=== PATIENT | male | born 1965 | race Caucasian/White ===

== ENCOUNTER 2018-07-09 05:55 | Inpatient (IN) | payer OTHER ==
[~2018-07-09] VITALS: Ht 190.5 cm; Wt 164.6 kg
[2018-07-09] MEDS ORDERED: FURO40 PO (06:18)
[2018-07-09] MEDS ORDERED: Jantoven5 MG PO (06:19)
[2018-07-09] MEDS ORDERED: LOSA50 PO (06:19)
[2018-07-09] MEDS ORDERED: HYDCHL25 PO (06:19)
[2018-07-09] MEDS ORDERED: POTCHL20ER PO (06:19)
[2018-07-09] MEDS ORDERED: PANT40 PO (06:19)
[2018-07-09] MEDS ORDERED: Fergon240 M1 PO (06:20)
[2018-07-09] MEDS ORDERED: Lopressor 25 mg25 MG PO (06:20)
[2018-07-09 06:31] LABS: BASOPHILS ABSOLUTE AUTO 0.03 K/mm3 (0.00-0.23); BASOPHILS PERCENT AUTO 0 % (0-2); EOSINOPHILS ABSOLUTE AUTO 0.01 K/mm3 (0.00-0.68); EOSINOPHILS PERCENT AUTO 0 % (0-6); Hemoglobin 14.4 g/dL (13.5-17.5); IMMATURE GRAN ABSOLUTE AUTO 0.05 K/mm3 (0.00-0.10); IMMATURE GRAN PERCENT AUTO 0 % (0-1); LYMPHOCYTES ABSOLUTE AUTO 0.27 K/mm3 (0.84-5.20); LYMPHOCYTES PERCENT AUTO 2 % (21-46); MONOCYTES ABSOLUTE AUTO 0.49 K/mm3 (0.16-1.47); MONOCYTES PERCENT AUTO 4 % (4-13); Mean Corpuscular HGB 28.9 pg (26.0-34.0); Mean Corpuscular HGB Conc 32.7 g/dL (31.5-36.5); Mean Corpuscular Volume 88 fL (80-100); Mean Platelet Volume 11.2 fL (9.1-12.4); NEUTROPHILS ABSOLUTE AUTO 10.32 K/mm3 (1.96-9.15); NEUTROPHILS PERCENT AUTO 92 % (41-73); Platelet Count 152 K/mm3 (150-400); RDW Coefficient Variation 14.8 % (11.7-14.2); RDW Standard Deviation 47.8 fL (35.1-46.3); Red Blood Cell Count 4.99 M/mm3 (4.30-5.90); White Blood Cell Count 11.17 K/mm3 (4.00-11.30)
[2018-07-09 06:46] LABS: Alanine Aminotransfer (ALT/SGP 46 U/L (12-78); Albumin, Blood 3.4 g/dL (3.4-5.0); Albumin/Globulin Ratio 1.1 (0.8-1.8); Alk Phos 70 U/L (50-136); Anion Gap 9 mmol/L (6-16); Aspartate Aminotrans (AST/SGOT 35 U/L (12-37); Bilirubin, Total 1.4 mg/dL (0.1-1.0); Blood Urea Nitrogen 15 mg/dL (8-24); Bun/Creatinine Ratio 12.7 (12.0-20.0); CO2, Blood 23 mmol/L (21-32); Calcium, Blood 8.5 mg/dL (8.5-10.1); Chloride, Blood 110 mmol/L (98-108); Creatinine, Blood 1.18 mg/dL (0.60-1.20); Globulin, Blood 3.2 g/dL (2.2-4.0); Glomerular Filtration Rate >60 (60-); Glucose, Blood 152 mg/dL (70-99); Potassium, Blood 3.4 mmol/L (3.5-5.5); Sodium, Blood 142 mmol/L (136-145); Total Protein, Blood 6.6 g/dL (6.4-8.2); Troponin I 0.016 ng/mL (0.000-0.040)
[2018-07-09 07:02] LABS: D-Dimer, Quantitative 1.19 mg/L FEU (0.00-0.52); International Normalized Ratio 2.91
--- NOTE | 2018-07-09 12:56 | NUR ---
ASSUMED CARE: PT NEW ADMIT PCU STATUS FOR CHEST PAIN. STATES HIS CP IS SIGNIFICANTLY BETTER BUT A BURNING PAIN THAT FEELS LIKE A BAND AROUND THE FRONT OF HIS CHEST. BP LOW SYSTOLIC IN 80S. PT ARRIVES TO UNIT WITH NS AT 250 AND KCL RUNNING. CALL TO DR PERAZA TO DISCUSS RATE AND DR RENDON LEAVE AT 250 FOR THIS LITER AND LET HIM KNOW IF PRESSURE DOESN'T IMPROVE. 2L O2 VIA NC FOR SOB, SATTING LOW 90S. HR LOW 100S. RESTING QUIETLY IN BED, ALERT AND ORIENTED. DENIES FURTHER NEEDS OR CONCERNS AT THIS TIME.
[2018-07-09] MEDS ORDERED: EMERGEN-C 1,01000 MG PO (13:01)
[2018-07-09] MEDS ORDERED: ASPI325 PO (13:02)
[2018-07-09] MEDS ORDERED: ACET325 PO (13:02)
[2018-07-09] MEDS ORDERED: FISH OIL 1,001000 MG PO (13:03)
[2018-07-09] MEDS ORDERED: Glucosamine Ch1 EAC4 PO (13:03)
--- NOTE | 2018-07-09 13:25 | NUR ---
DR PERAZA AWARE OF PT'S CHANGE IN TROPONIN. NO NEW ORDERS AT THIS TIME.
--- NOTE | 2018-07-09 13:56 | NUR ---
DR SUERO HERE TO SEE PT. FEELS VOMITING WAS PROBABLY VIRAL AND INCREASED TROPONIN LIKELY FROM VOMITING. ENTERING ORDERS AT THIS TIME AND SPEAKING WITH PT'S MOTHER BY PHONE
--- NOTE | 2018-07-09 18:33 | NUR ---
SHIFT SUMMARY: PT RESTING IN BED, ZOFRAN AND GI COCKTAIL GIVEN BUT PT FEELS DIDN'T HELP WITH NAUSEA OR CHEST PAIN. SMALL VOLUMES OF EMESIS, MOSTLY MUCOUSY. VSS AT THIS TIME. MOTHER AT BED SIDE OFF AND ON THIS SHIFT.
--- NOTE | 2018-07-09 18:57 | NUR ---
NOTED THAT PT'S O2 NEEDS HAVE INCREASED FROM 3 TO 5L NC WITH SATS IN HIGH 80S. LUNG SOUNDS APPEAR MORE DIMINISHED. CALL TO DR CASTREJON WITH PT'S CURRENT ADMISSION AND HISTORY EXPLAINED. ORDER TO TURN OFF FLUIDS AT THIS TIME. AWARE PT IS STILL HAVING NAUSEA AND DRY HEAVES AND DIZZINESS AND NOT TOLERATING VERY MUCH PO
--- NOTE | 2018-07-09 19:30 | NUR ---
ASUME CARE: REPORT RECIEVED FROM [facility] OFF GOING RN. MONITOR INTACT SHOWING SINUS RHYTHM/SINUS TACH. HEART RATE 90'S-110'S. LUNG SOUNDS DISTANT/DECREASED THROUGH OUT. SPO2 85-90 ON 5L NASAL CANNULA RT NOTIFIED. INCREASE O2 TO 6L/MIN. ABDOMEN SOFT WITH BOWEL SOUNDS FOUR QUADS. REPOSITIONS SELF IN BED. CONTINUE TO MONITOR AND REPORT CHANGE IN PATIENT CONDITION.
--- NOTE | 2018-07-09 20:25 | NUR ---
MEDICATED WITH TYLENOL 650MG PO TOLERATES WELL LUNG SOUNDS REMAIN DECREASED SPO2 85-88% RT NOTIFIED PLACED ON CPAP AUTO 5-20 CONTINUE TO MONITOR AND ADJUST SETTINGS BY RT
--- NOTE | 2018-07-09 21:30 | NUR ---
DR CASTREJON IN TO SEE PATIENT ORDERS NOTED. CONTINUE TO MONITOR AND REPORT CHANGE IN PATIENT CONDITION. CPAP IN PLACE
[2018-07-10 03:51] LABS: BASOPHILS ABSOLUTE AUTO 0.01 K/mm3 (0.00-0.23); BASOPHILS PERCENT AUTO 0 % (0-2); Hematocrit 41.8 % (37.0-53.0); Hemoglobin 13.2 g/dL (13.5-17.5); LYMPHOCYTES ABSOLUTE AUTO 0.08 K/mm3 (0.84-5.20); LYMPHOCYTES PERCENT AUTO 1 % (21-46); MONOCYTES ABSOLUTE AUTO 0.25 K/mm3 (0.16-1.47); MONOCYTES PERCENT AUTO 3 % (4-13); Mean Corpuscular HGB 28.6 pg (26.0-34.0); Mean Corpuscular HGB Conc 31.6 g/dL (31.5-36.5); Mean Platelet Volume 12.2 fL (9.1-12.4); Platelet Count 121 K/mm3 (150-400); RDW Coefficient Variation 15.2 % (11.7-14.2); RDW Standard Deviation 50.5 fL (35.1-46.3); Red Blood Cell Count 4.61 M/mm3 (4.30-5.90); White Blood Cell Count 8.18 K/mm3 (4.00-11.30)
[2018-07-10 03:52] LABS: EOSINOPHILS PERCENT AUTO 0 % (0-6); IMMATURE GRAN ABSOLUTE AUTO 0.15 K/mm3 (0.00-0.10); IMMATURE GRAN PERCENT AUTO 2 % (0-1); Mean Corpuscular Volume 91 fL (80-100); NEUTROPHILS ABSOLUTE AUTO 7.69 K/mm3 (1.96-9.15); NEUTROPHILS PERCENT AUTO 94 % (41-73)
[2018-07-10 04:08] LABS: International Normalized Ratio 2.14; Prothrombin Time Results 21.2 Sec (9.7-11.5)
[2018-07-10 04:15] LABS: Bun/Creatinine Ratio 18.3 (12.0-20.0); Calcium, Blood 7.9 mg/dL (8.5-10.1); Creatinine, Blood 1.64 mg/dL (0.60-1.20); Magnesium, Blood 1.5 mg/dL (1.6-2.4); Potassium, Blood 3.8 mmol/L (3.5-5.5)
[2018-07-10 04:39] LABS: Troponin I 2.23 ng/mL (0.000-0.040)
--- NOTE | 2018-07-10 06:00 | NUR ---
DR REYNA NOTIFIED OF TROPONIN RESULTS. N O ORDERS NOTED. CONTINUE TO MONITOR AND REPORT CHANGE IN PATIENT CONDITION
--- NOTE | 2018-07-10 06:02 | NUR ---
SHIFT SUMMARY RESTS QUIETLY WHEN UNDISTURBED CPAP IN PLACE SPO2 95-98% WITH SETTINGS AUTO 12-20 WITH 5L BLED IN SPO2 95-98% RESPITORY RATE 17-40'S. LUNG SOUNDS REMAIN DISTANT WITH DECREASED SOUNDS AND FEW FINE CRACKLES IN THE BASES. ABDOMEN SOFT WITH BOWEL SOUNDS FOUR QUADS. VOIDS DARK CASTRO URINE PER URINAL. INCONTINENT OF URINE ONE TIME. MEDICATED WITH ZOFRAN ONE TIME FOR SMALL AMT MUCOUSY EMESIS. REPOSITIONS SELF IN BED. NO EDEMA NOTED PEDAL PULSES PRESENT DR SUERO NOTIFIED OF LAB RESULTS NO ORDERS NOTED. CONTINUE TO MONITOR AND RPORT CHANGE IN PATIENT CONDITION
--- NOTE | 2018-07-10 07:30 | NUR ---
ASSUMED CARE: PT RESTING AT THIS TIME. MORE OBTUNDED THIS AM THAN PRIOR SHIFT WITH PT. HE WINCES AND MOANS TO STIMULI BUT DOES NOT OPEN EYES. LAB AT BEDSIDE. FLUIDS STARTED PER DR SUERO'S ORDERS.
--- NOTE | 2018-07-10 08:41 | NUR ---
PT CONTINUES TO BE OBTUNDED. HE DOES SPEAK WITH A SLURR. MOUTH APPEARS TO HAVE A SLIGHT LEFT DROOP AND WEAKNESS IN LEFT SIDE. CALLED DR PERAZA TO ROOM, PT BEGAN TO WAKE UP AND MOVE MORE WITH EQUAL STRENGTH BILATERAL SIDES. DR PERAZA STATES TO CONTINUE TO MONITOR AND TO START HEPARIN ORDERED. WILL START WHEN SECOND IV LINE IS IN PLACE. KIRTI GOODE ATTEMPTING NEW SITE
--- NOTE | 2018-07-10 09:30 | NUR ---
DR PERAZA CHANGED PT TO ICU STATUS. DISCUSSED WITH HOMICIDE DETECTIVE. REPORT GIVEN TO KIRTI GOODE.
[2018-07-10 09:44] LABS: PCO2 Arterial 28.8 mmHg (35-45); PO2 Arterial 56.8 mmHg (80-100)
--- NOTE | 2018-07-10 10:07 | NUR ---
REPORT TAKEN ON PT. DURING REPORT IT WAS NOTD THAT THE PT HAD A CHANGE IN RHYTHM. APPEARED TO BE AFIB, EKG SHOWS MOBIC 1. PT SOMULENT OPENS EYES TO SHAKE ONLY. SPEECH INCOMPREHENSIBLE/GARBLED. PUPILS ER /. DR PERAZA CALLED. SEE ORDERS. STAT ABG DRAWN. BIPAP STARTED AT 18/8 W FIO2 AT 50%. RATE 29-50. BP STABLE. PT'S MOTHER CALLED FOR PICC LINE CONSENT; PT'S MOTHER IN HOSPITAL, CONSENT OBTAINED. STAT TROPONIN DRAWN. CONDOM XCATH PLACED, NO URINE OUTPUT. BLADDER SCAN SHOWS APPROX 390CC.
[2018-07-10 14:19] LABS: PCO2 Arterial 35.3 mmHg (35-45); PO2 Arterial 71.3 mmHg (80-100); pH Blood Arterial 7.36 (7.35-7.45)
[2018-07-10 14:52] LABS: Source, Urine Catheter
[2018-07-10 15:05] LABS: Bilirubin, Urine Neg (Neg); Blood, Urine 4+ (Neg); Glucose Qualitative, Urine Neg (Neg); Ketones, Urine 1+ (Neg); Leukocyte Esterase, Urine 1+ (Neg); Nitrite, Urine Neg (Neg); Protein, Urine 3+ (Neg); Urobilinogen, Urine 1+ (Normal)
[2018-07-10 15:21] LABS: Appearance, Urine Cloudy (Clear); Color, Urine Yellow (P-Yellow)
[2018-07-10 15:23] LABS: Amorphous Light (0-Heavy); Bacteria Few /hpf; Squamous Epithelial Cells Not Seen /hpf (Few)
[2018-07-10 17:07] LABS: U Amphetamine Screen Not Detected; U Barbituate Screen Not Detected; U Benzodiazapine Screen Not Detected; U Buprenorphine Screen Not Detected; U Cannabinoids Screen Not Detected; U Cocaine Screen Not Detected; U Methadone Screen Not Detected; U Methamphetamine Screen Not Detected; U Opiates Screen Not Detected; U Oxycodone Screen Not Detected; U Phencyclidine Screen Not Detected
[2018-07-10 17:08] LABS: U Propoxyphene Screen Not Detected
--- NOTE | 2018-07-10 17:13 | NUR ---
Per admit trigger, I attempted to meet with pt regarding an advanced directive. Pt was being intubated when I arrived to unit. Later, I met with his parents at bedside. They were understandably emotionally overwhelmed with Ed's decline. He is being transferred to [facility] this evening. At mother's request, I prayed for Ed at bedside.
--- NOTE | 2018-07-10 18:03 | NUR ---
VERY GOOD DAY. STILL HAS WEAK EXP WHEEZES. ON 3L NC. WANTS HERE ROXANAL LIQ AT BEDTIME AND THEN WILL USE AVAP FOR THE NIGHT. SOME PAIN LEFT CHEST AFTER COUGHING. MED WITH MORPHINE 1MG WITH RELIEF. ONE DAUGHTER CALLED IN TO INQUIRE ABOUT PATIENT. WENT OVER THE 2ND UNIT OF BLOOD AND THAT SHE WAS MADE A PCU STATUS PATIENT. DAUGHTER STATED THAT SHE COULD NOT GO HOME YET SHE WAS TOO SICK. I EXPLAINED TO HER THAT MANY [facility] PATIENTS GO HOME THE NEXT DAY BUT SHE DOES HAVE MANY COMORBIDITIES. ALSO A DROP IN HER HEMOGLOBIN WITH [address] RODRIGUEZ CALLED AND HE REQUESTED A GI CONSULT FOR TOMORROW AM.
--- NOTE | 2018-07-10 21:42 | NUR ---
PROPOFOL TURNED OFF DURING CT SCAN DUE TO SOME HYPOTENSION WITH MAP >65 AND D/T PT'S LACK OF RESPONSE TO NOXIOUS STIMULI.
--- NOTE | 2018-07-10 21:45 | NUR ---
PT RESPONDS TO PAIN IN LEFT LEG BY WITHDRAWING, POSITIVE BABINSKI LEFT FOOT. TO RESPONSE TO PAIN IN RIGHT LEG, NO PLANTAR REFLEX NOTED. NO RESPONSE TO PAIN IN BUE. NO RESPONSE TO STERNAL RUB. GRIMACES TO ORAL CARE. ABSENT GAG, SWALLOW, COUGH. PUPILS 3/3, SOMETIMES 4/4. EQUAL AND SLUGGISH. CORNEAL REFLEX PRESENT BUT DOES NOT FLINCH. EYES GAZE FROM LEFT TO RIGHT IN SYNCH CONT.
--- NOTE | 2018-07-10 22:04 | NUR ---
DR PERAZA AND DR SUERO CALLED AT 1107/1115 TO NOTIFY OF CRITICAL HIGH TROPONIN AND TO GIVE UPDATE OF PT'S DECLINING NEURO STATUS. PT AROUSES TO SHAKE ONLY AND SPOKE WITH INCOMPREHENSIBLE GARBLE FALLING BACK TO STUPOR STATE WITH RESP 40-50. PICC LINE WAS PLACED W/O DIFF AT 0945. PICC LINE ADVANCED 2CM RADIOLOGIST ASKED THAT IT BE ADVANCED 4CM (ONLY 2CM AVAILABLE TO ADVANCE). JACQUES WITH TEMP PROBLE PLACED AT 1141 D/T RETENTION AND INABILITY TO TAKE ACCURATE TEMP 2ND TO PT BEING DIAPHORECTIC. FAMILY AT BEDSIDE(PT'S PARENTS, BROTHER AND SISTER IN LAW). TEMP 104.5 QUICKLY AFTER JACQUES PLACED. DR PERAZA AND DR SUERO NOTIFIED. CRITICAL CARE CONSULT ORDERED BY DR SUERO; GAVE DR PADILLA A FULL UPDATE AT 1140. FLUIDS THAT WERE RUNNING AT 200CC/HR WERE TKO'D PER DR SUERO AT 1130 D/T BNP AND LACK OF RESPONSE TO IV LASIX THIS AM. PT INTUBATED WITH VERSED AND PROPOFOL AT [address] PADILLA; PT UNABLE TO PROTECT AIRWAY AND INABILITY TO HOLD HEAD STILL FOR CT (PT UNABLE TO FOLLOW DIRECTIONS). THE INTUBATION WAS MODERATLY DIFFICULT REQUIRING PULLING OUT THE ETT AND REPOSITIONING IT FOR A SECOND TIME DURING INTUBATION. INTUBATION TOOK APPROX 20MIN, PT'S SATS NEVER FELL BELOW 86%. SEE RT RECORD FOR SETTINGS. PRIOR TO INTUBATION DR PADILLA INFORMED ME THAT PT WOULD NEED CT TO R/O BLEED; AT THIS TIME HEPARIN GTT STOPPED AT APPROX 1230 (HEP WAS AT 13U/KG/HR). CT OF HEAD COMPLETED AT 1325, DURING THIS TIME PROPOFOL STOPPED D/T BP TRENDING DOWN AND PT'S MINIMALLY RESPONSIVE STATE. DR PADILLA NOTIFIED OF THIS. ANTIBIOTICS, KEPPRA,AND NS STARTED AT 125CC/HR AFTER CT. DR PADILLA ARRANGED FOR PT TO BE TRANSFERED TO [facility] FOR NEURO CARE. REPORT GIVEN TO AIDEN RN AT 1526. [facility] RN UPDATE AT 1800 WELL. PROPOFOL WAS AGAIN RESTARTED PER DR PADILLA AT 1615 D/T INCREASED RESP EFFORT. RESP 40-50 WITH SOME ASYNCHRONY WITH VENT, ACCESSORY MUSCLES IN USE AND TWITCHING NOTED TO LEFT LEG. PUPILS E/R SLUGGISH WITH INCREASED NYSTAGMUS AND GAZE TO LEFT. ATIVAN GIVEN WELL. LEVOPHED STARTED AT 1533 TO KEEP MAP 140-[address] PADILLA. LEVOPHED WAS TITRATED UP TO 30MCG. VASOPRESSIN WAS ADDED RYAN WAS GETTING READY TO LEAVE W PT D/T SBP OF 103 ON 30MCG OF LEVOPHED. RYAN ARRIVED AT 1703 AND LEFT AND 1746. ATTEMPTS MADE T/O SHIFT TO LOWER TEMP (TMAX 104.8) INCLUDING: WET TOWELS W FAN, WET WASHCLOTH TO HEAD, ICE PACKS TO GROIN, NECK, UNDERARMS, COOLING BLANKET, TYLENOL [place]. THE TEMP LOWERED TO 103.8 AROUND 1700 AND STARTED RISING AGAIN SHORTLY THEREAFTER. DR SUERO IN SEVERAL TIMES T/O SHIFT TO CHECK ON PT AND SPEAK W FAMILY. DR PADILLA FREQUENTLY AT [facility] T/O SHIFT.
== END 2018-07-10 17:46 | disposition short-term general hospital (02) | DRG 208 ==
LOC: ER 05:55 → ICUW 05:56 → PCU 05:56 → ICUW 11:31
PROVIDERS: Emergency Medicine; Internal Medicine Cardiovascular Disease; Internal Medicine Critical Care Medicine; ADMIT Hospitalist
PROC: 5A09357 Assistance with Respiratory Ventilation, Less than 24 Consecutive Hours, Continuous Positive Airway Pressure (ICD-10-PCS; principal; 2018-07-10)
PROC: 0BH18EZ Insertion of Endotracheal Airway into Trachea, Via Natural or Artificial Opening Endoscopic (ICD-10-PCS; 2018-07-10)
PROC: 5A1935Z Respiratory Ventilation, Less than 24 Consecutive Hours (ICD-10-PCS; 2018-07-10)
DX: J96.91 Respiratory failure, unspecified with hypoxia (principal); I60.9 Nontraumatic subarachnoid hemorrhage, unspecified; I21.4 Non-ST elevation (NSTEMI) myocardial infarction; N17.0 Acute kidney failure with tubular necrosis; Z68.42 Body mass index [BMI] 45.0-49.9, adult; I42.9 Cardiomyopathy, unspecified; G93.40 Encephalopathy, unspecified; Z86.73 Personal history of transient ischemic attack (TIA), and cerebral infarction without residual deficits; Z95.2 Presence of prosthetic heart valve; Z79.01 Long term (current) use of anticoagulants; E66.01 Morbid (severe) obesity due to excess calories; K21.9 Gastro-esophageal reflux disease without esophagitis; D50.9 Iron deficiency anemia, unspecified; E87.6 Hypokalemia; E86.0 Dehydration; I71.2 Thoracic aortic aneurysm, without rupture; R00.0 Tachycardia, unspecified; E78.00 Pure hypercholesterolemia, unspecified; Z79.82 Long term (current) use of aspirin
CPT/HCPCS: 31500; 31720; 36415; 36569; 36600; 51702; 70450; 71045; 71046; 71275; 74175; 80048; 80053; 81001; 82803; 83690; 83735; 83880; 84145; 84484; 85025; 85060; 85379; 85610; 86850; 86900; 86901; 87040; 87077; 87086; 87147; 87186; 90686; 93005; 93010; 93308; 93321; 94002; 94640; 94660; 96374-59; 96375; 96375-59; 96376; 99285-25; C1751; C9113; G0008; G0378; J1200; J1644; J1940; J1953; J2060; J2185; J2250; J2405; J2550; J2930; J3370; J3475; J3480; J7030; J7050; J7060; P9046; Q9967